=== PATIENT | female | born 1930 | race Caucasian/White ===

== ENCOUNTER 2016-08-25 10:43 | Inpatient (IN) | payer OTHER ==
[~2016-08-25] VITALS: Ht 152.4 cm; Wt 48.1 kg
[~2016-08-25 10:43] MED LIST: AMLODIPINE5 M1 PO; CARAFATE1 GM PO; COL100 PO; ENALAPRIL MALEAT5 MG PO; LAC PO; LEVAQUIN PO; PROTONIX40 MG/Pac1 PO; SIMETHICON PO
[2016-08-25 13:00] LABS: microscopic required? YES; urine erythrocyte 1+ (NEGATIVE)
[2016-08-25 13:02] LABS: BASOPHIL % 0.3 % (0-2); PLATELET COUNT 252 x10^3mcL (130-400); RED CELL DISTRIBUTION WIDTH 14.1 % (11.5-14.5)
[2016-08-25 13:16] LABS: CALCIUM 9.2 mg/dL (8.5-10.1); CARBON DIOXIDE 23.3 mmol/L (21-32); CHLORIDE SERUM 101 mmol/L (98-107); CREATININE SERUM 0.9 mg/dL (0.6-1.0); GLUCOSE SERUM 86 mg/dL (74-106); POTASSIUM SERUM 4.7 mmol/L (3.5-5.1); SODIUM SERUM 135 mmol/L (136-145)
[2016-08-25 13:20] LABS: ALBUMIN 3.9 g/dL (3.4-5.0); ALKALINE PHOSPHATASE 72 U/L (46-116); ALT/SGPT 18 U/L (14-59); AST/SGOT 30 U/L (15-37); BILIRUBIN TOTAL 0.77 mg/dL (0.20-1.00); PHOSPHOROUS 4.2 mg/dL (2.5-4.9); TOTAL PROTEIN, SERUM 7.1 g/dL (6.4-8.2)
[2016-08-25 13:23] LABS: CHOLESTEROL 212 mg/dL (<200); HDL CHOLESTEROL 112 mg/dL (40-60)
[2016-08-25] MEDS ORDERED: ENALAPRIL MALEA10 MG PO (14:20)
[2016-08-25 15:22] VITALS: BP 142/85
[2016-08-25 15:44] LABS: T3 TOTAL 0.9 ng/mL
[2016-08-25 15:59] LABS: CHOLESTEROL/HDL RATIO 1.9
[2016-08-25 16:08] LABS: FREE T4 1.14 ng/dL (0.76-1.46); FREE THYROXINE INDEX 3.2 ug/dL (1.4-4.5)
[2016-08-25 22:09] VITALS: BP 112/64
[2016-08-26 06:18] VITALS: BP 112/63
[2016-08-26 06:24] LABS: CALCIUM 8.2 mg/dL (8.5-10.1); CARBON DIOXIDE 19.8 mmol/L (21-32); CHLORIDE SERUM 110 mmol/L (98-107); CREATININE SERUM 0.8 mg/dL (0.6-1.0); MAGNESIUM 1.8 mg/dL (1.8-2.4); PHOSPHOROUS 3.7 mg/dL (2.5-4.9); POTASSIUM SERUM 4.5 mmol/L (3.5-5.1); SODIUM SERUM 143 mmol/L (136-145)
[2016-08-26 06:27] LABS: BASOPHIL % 0.4 % (0-2); PLATELET COUNT 204 x10^3mcL (130-400)
[2016-08-26 08:05] LABS: GLUCOSE SERUM 54 mg/dL (74-106)
[2016-08-26 10:27] VITALS: BP 115/61
[2016-08-26 13:42] VITALS: BP 114/69
[2016-08-26 17:40] VITALS: BP 130/70
[2016-08-26 21:35] VITALS: BP 137/71
[2016-08-27 05:33] VITALS: BP 132/66
[2016-08-27 06:22] LABS: BASOPHIL % 0.3 % (0-2); CALCIUM 8.5 mg/dL (8.5-10.1); CARBON DIOXIDE 25.5 mmol/L (21-32); CHLORIDE SERUM 110 mmol/L (98-107); CREATININE SERUM 0.8 mg/dL (0.6-1.0); GLUCOSE SERUM 114 mg/dL (74-106); PLATELET COUNT 197 x10^3mcL (130-400); SODIUM SERUM 144 mmol/L (136-145)
[2016-08-27 14:04] VITALS: BP 106/85
[2016-08-27 17:07] VITALS: BP 127/61
[2016-08-27] MEDS ORDERED: ROC1I IM (17:31)
[2016-08-27] MEDS ORDERED: ELA10 PO (17:34)
[2016-08-27] MEDS ORDERED: CELEXA20 MG PO (17:37)
[2016-08-27 21:27] VITALS: BP 134/84
[2016-08-28 05:51] VITALS: BP 119/52
[2016-08-28 06:15] LABS: BASOPHIL % 0.5 % (0-2); PLATELET COUNT 180 x10^3mcL (130-400); RED CELL DISTRIBUTION WIDTH 14.2 % (11.5-14.5)
[2016-08-28 06:28] LABS: CALCIUM 8.6 mg/dL (8.5-10.1); CARBON DIOXIDE 25.4 mmol/L (21-32); CHLORIDE SERUM 111 mmol/L (98-107); CREATININE SERUM 0.8 mg/dL (0.6-1.0); GLUCOSE SERUM 94 mg/dL (74-106); POTASSIUM SERUM 4.3 mmol/L (3.5-5.1); SODIUM SERUM 145 mmol/L (136-145)
[2016-08-28 09:39] VITALS: BP 123/72
[2016-08-28 11:40] VITALS: BP 123/72
[2016-08-28] MEDS ORDERED: AMO500 PO (12:10)
[2016-08-28] MEDS ORDERED: BIA500 PO (12:10)
[2016-08-28] MEDS ORDERED: PRI20 PO (12:10)
[2016-08-28 13:56] VITALS: BP 149/89
[2016-08-28] MEDS ORDERED: NOR5 PO (15:36)
[2016-08-28 21:22] VITALS: BP 155/86
[2016-08-29 00:49] VITALS: BP 143/88
== END 2016-08-29 01:19 | DRG 383 ==
LOC: ED 10:43 → DU 14:04
PROVIDERS: Emergency Medicine; Internal Medicine Gastroenterology; ADMIT Family Medicine
PROC: 0DB68ZX Excision of Stomach, Via Natural or Artificial Opening Endoscopic, Diagnostic (ICD-10-PCS; principal; 2016-08-27 12:00)
PROC: 0D738ZZ Dilation of Lower Esophagus, Via Natural or Artificial Opening Endoscopic (ICD-10-PCS; 2016-08-27 12:00)
PROC: 0DB38ZX Excision of Lower Esophagus, Via Natural or Artificial Opening Endoscopic, Diagnostic (ICD-10-PCS; 2016-08-27 12:00)
DX: K27.3 Acute peptic ulcer, site unspecified, without hemorrhage or perforation (principal); N17.0 Acute kidney failure with tubular necrosis; N39.0 Urinary tract infection, site not specified; F33.1 Major depressive disorder, recurrent, moderate; E87.1 Hypo-osmolality and hyponatremia; B96.81 Helicobacter pylori [H. pylori] as the cause of diseases classified elsewhere; E86.0 Dehydration; R31.9 Hematuria, unspecified; K22.2 Esophageal obstruction; K21.0 Gastro-esophageal reflux disease with esophagitis; K44.9 Diaphragmatic hernia without obstruction or gangrene; I10 Essential (primary) hypertension; E78.5 Hyperlipidemia, unspecified; Z68.20 Body mass index [BMI] 20.0-20.9, adult
CPT/HCPCS: 43235; 76770; 82962; 83880; 84439; 92610-GN; 97110-GP; 97116-GP; 97530-GP; B4164; C9113; J0696; J1200; J1610; J2250; J2310; J3010; J3490; J7030; J7042; Q0092

== ENCOUNTER 2018-06-03 17:49 | Inpatient (IN) | payer OTHER ==
[~2018-06-03] VITALS: Ht 149.9 cm; Wt 46.9 kg
[~2018-06-03 17:49] MED LIST changes: +AMO500 PO; +BIA500 PO; +CELEXA20 MG PO; +ELA10 PO; +ENALAPRIL MALEA10 MG PO; +NOR5 PO; +PRI20 PO; +ROC1I IM
[2018-06-03 18:44] VITALS: Ht 149.9 cm; Wt 46.9 kg
[2018-06-03 20:02] LABS: BASOPHIL % 0.2 % (0-2); RED CELL DISTRIBUTION WIDTH 14.1 % (11.5-14.5)
[2018-06-03 20:06] LABS: PLATELET COUNT 424 x10^3mcL (130-400)
[2018-06-03 20:12] LABS: CALCIUM 8.4 mg/dL (8.5-10.1); CARBON DIOXIDE 29.8 mmol/L (21-32); CHLORIDE SERUM 101 mmol/L (98-107); CREATININE SERUM 0.7 mg/dL (0.6-1.0); GLUCOSE SERUM 102 mg/dL (74-106); POTASSIUM SERUM 3.3 mmol/L (3.5-5.1); SODIUM SERUM 137 mmol/L (136-145)
[2018-06-03 20:17] LABS: ALKALINE PHOSPHATASE 72 U/L (46-116); ALT/SGPT 23 U/L (14-59); AST/SGOT 31 U/L (15-37); BILIRUBIN TOTAL 1.32 mg/dL (0.20-1.00); CHOLESTEROL 158 mg/dL (<200); HDL CHOLESTEROL 59 mg/dL (40-60); LIPASE 228 IU/L (73-393)
[2018-06-03 20:18] LABS: ALBUMIN 2.4 g/dL (3.4-5.0)
[2018-06-04] MEDS ORDERED: ALPRAZOLAM0.25 MG PO ×2 (00:54→00:59)
[2018-06-04] MEDS ORDERED: VITAMIN D32000 I2 PO (00:55)
[2018-06-04] MEDS ORDERED: CALCIUM CARBO1250 MG PO (00:55)
[2018-06-04] MEDS ORDERED: LOV40I SC (00:56)
[2018-06-04] MEDS ORDERED: COLACE100 MG PO (00:56)
[2018-06-04] MEDS ORDERED: CIPRO500 MG PO (00:56)
[2018-06-04] MEDS ORDERED: NATURAL IRON65 MG PO (00:57)
[2018-06-04] MEDS ORDERED: MELATONIN3 MG PO (00:58)
[2018-06-04] MEDS ORDERED: LIDODERM51 TOP (00:58)
[2018-06-04] MEDS ORDERED: PROTONIX TR40 M1 PO (00:58)
[2018-06-04] MEDS ORDERED: TRAMADOL HCL50 MG PO (00:59)
[2018-06-04 02:21] VITALS: BP 147/72
[2018-06-04 06:07] VITALS: BP 133/67
[2018-06-04 08:50] VITALS: BP 129/68
[2018-06-04 11:55] LABS: BASOPHIL % 0.3 % (0-2); PLATELET COUNT 390 x10^3mcL (130-400); RED CELL DISTRIBUTION WIDTH 14.4 % (11.5-14.5)
[2018-06-04 12:15] LABS: CALCIUM 7.8 mg/dL (8.5-10.1); CARBON DIOXIDE 25.9 mmol/L (21-32); CHLORIDE SERUM 105 mmol/L (98-107); CREATININE SERUM 0.6 mg/dL (0.6-1.0); GLUCOSE SERUM 101 mg/dL (74-106); MAGNESIUM 1.8 mg/dL (1.8-2.4); POTASSIUM SERUM 3.5 mmol/L (3.5-5.1); SODIUM SERUM 138 mmol/L (136-145)
[2018-06-04 13:26] VITALS: BP 130/68
[2018-06-04 17:08] VITALS: BP 138/70
[2018-06-04 21:57] VITALS: BP 137/66
[2018-06-05 05:37] VITALS: BP 125/69
[2018-06-05 09:29] VITALS: BP 165/79
[2018-06-05 13:30] VITALS: BP 163/83
[2018-06-05 16:36] VITALS: BP 159/78
[2018-06-05] MEDS ORDERED: PROTONIX40 MG PO (19:22)
[2018-06-05 20:36] LABS: microscopic required? NO
[2018-06-05 21:14] VITALS: BP 131/69
[2018-06-05 21:25] LABS: AMPHETAMINE QUAL UR NONE DETECTED (See below)
[2018-06-05 21:28] LABS: UA SPECIFIC GRAVITY 1.015 (1.005-1.035); urine erythrocyte NEGATIVE (NEGATIVE)
[2018-06-06 06:05] VITALS: BP 120/61
[2018-06-06 08:33] VITALS: BP 105/55
[2018-06-06 12:29] VITALS: BP 139/67
[2018-06-06 13:31] VITALS: BP 139/67
[2018-06-06 15:39] VITALS: BP 130/65
[2018-06-06 20:13] VITALS: BP 124/62
[2018-06-07 05:31] VITALS: BP 134/86
[2018-06-07 09:18] VITALS: BP 121/60
[2018-06-07 13:33] VITALS: BP 134/65
[2018-06-07 16:35] VITALS: BP 112/56
== END 2018-06-07 19:20 | DRG 682 ==
LOC: ED 17:49 → DU 06-04 00:31
PROVIDERS: Emergency Medicine; Internal Medicine Gastroenterology; ADMIT Internal Medicine
PROC: 0D718ZZ Dilation of Upper Esophagus, Via Natural or Artificial Opening Endoscopic (ICD-10-PCS; principal; 2018-06-05 13:30)
DX: N17.0 Acute kidney failure with tubular necrosis (principal); J18.9 Pneumonia, unspecified organism; G93.41 Metabolic encephalopathy; E43 Unspecified severe protein-calorie malnutrition; B37.81 Candidal esophagitis; J90 Pleural effusion, not elsewhere classified; E86.0 Dehydration; K22.2 Esophageal obstruction; F32.9 Major depressive disorder, single episode, unspecified; F41.9 Anxiety disorder, unspecified; R62.7 Adult failure to thrive; R13.19 Other dysphagia; E87.6 Hypokalemia; I10 Essential (primary) hypertension; D50.9 Iron deficiency anemia, unspecified; Z68.22 Body mass index [BMI] 22.0-22.9, adult; F03.90 Unspecified dementia, unspecified severity, without behavioral disturbance, psychotic disturbance, mood disturbance, and anxiety
CPT/HCPCS: 43235; 83880; 88344; 92526-GN; 94150; 97110-GP; 97530-GP; C9113; J0456; J0690; J0696; J1200; J1450; J1610; J1650; J1885; J1940; J1956; J2060; J2250; J2270; J2310; J2405; J2765; J3010; J3490; J7030; J7050; J8597; Q0092